=== PATIENT | female | born 1950 ===

== ENCOUNTER 2022-10-05 14:49 | Inpatient (IN) | payer OTHER ==
[~2022-10-05] VITALS: Ht 167.6 cm; Wt 99.3 kg
[2022-10-06] MEDS ORDERED: NORV PO (13:19)
[2022-10-06] MEDS ORDERED: HYZAAR 100-12.1 EACH PO (13:19)
[2022-10-06] MEDS ORDERED: LIPIT PO (13:20)
[2022-10-10] MEDS ORDERED: AMLODIPINE BESYL5 MG (15:07)
[2022-10-10] MEDS ORDERED: ATORVASTATIN CA20 MG (15:08)
[2022-10-10] MEDS ORDERED: LOSARTAN-HCTZ1 EAC1 (15:09)
[2022-10-12] MEDS ORDERED: BACTRIM DS TAB1 EACH PO (07:41)
[2022-10-12] MEDS ORDERED: INTEGRA PLUS C1 EACH PO (07:41)
[2022-10-12] MEDS ORDERED: OXYC1TAB9 PO (07:41)
[2022-10-12] MEDS ORDERED: XARELTO10 MG PO (07:41)
== END 2022-10-12 14:03 | disposition designated cancer center or children's hospital (05) | DRG 470 ==
LOC: O/R 10-10 05:10 → SURH 10-10 10:00
PROVIDERS: ADMIT Orthopaedic Surgery Sports Medicine; ATTEND Orthopaedic Surgery Sports Medicine
PROC: 0SRC0J9 Replacement of Right Knee Joint with Synthetic Substitute, Cemented, Open Approach (ICD-10-PCS; principal; 2022-10-10 11:15)
DX: M17.11 Unilateral primary osteoarthritis, right knee (principal)

== ENCOUNTER 2024-01-18 05:32 | Day surgery (SDC) | payer OTHER ==
[~2024-01-18 05:32] MED LIST: AMLODIPINE BESYL5 MG; ATORVASTATIN CA20 MG; BACTRIM DS TAB1 EACH PO; GLUMETZA500 MG PO; HYZAAR 100-12.1 EACH PO; INTEGRA PLUS C1 EACH PO; LIPIT PO; LIPITOR20 MG PO; LOSARTAN-HCTZ1 EAC1; NORV PO; OXYC1TAB9 PO; XARELTO10 MG PO
[2024-01-18] MEDS ORDERED: LIDOCAINE HCL 1%/EPINEPHRINE 20ML VIAL IJ ONE (09:00)
[2024-01-18] MEDS ORDERED: HEMOSTATIC MATRIX 1 KIT KIT TOP ONE (09:00)
[2024-01-18] MEDS ORDERED: POVIDONE-IODINE 118 ML BOTT TOP ONE (09:00)
[2024-01-18] MEDS ORDERED: DIBUCAINE 30 GM TUBE RECTAL ONE (09:00)
[2024-01-18] MEDS ORDERED: BUPIVACAINE HCL 30 ML VIAL IJ ONE (09:00)
[2024-01-18] MEDS ORDERED: METRONIDAZOLE/SODIUM CHLORIDE 500 MG/100 ML PIGGYBACK IV ONE (09:15)
[2024-01-18] MEDS ORDERED: CEFTRIAXONE SODIUM 2,000 MG VIAL IV ONE (09:15)
[2024-01-18] MEDS ORDERED: PERCOCET 5-3251 EACH PO (09:47)
[2024-01-18] MEDS ORDERED: RECTICARE30 GM TOP (09:47)
== END 2024-01-18 13:50 | disposition home or self-care (01) ==
LOC: CIR.AMB 05:32
PROVIDERS: ATTEND Surgery
DX: D01.3 Carcinoma in situ of anus and anal canal (principal); K62.1 Rectal polyp; K62.0 Anal polyp

== ENCOUNTER 2024-04-12 10:00 | Inpatient (IN) | payer OTHER ==
[~2024-04-12] VITALS: Ht 167.6 cm; Wt 98.0 kg
[~2024-04-12 10:00] MED LIST changes: +PERCOCET 5-3251 EACH PO; +RECTICARE30 GM TOP
[2024-04-12] MEDS ORDERED: CHILDREN'S ASPI81 MG PO (10:47)
[2024-04-12] MEDS ORDERED: MULTI-VITAMIN1 EACH PO (10:48)
[2024-04-12] MEDS ORDERED: FOLIC ACID1 MG PO (10:48)
[2024-04-12 10:49] VITALS: BP 151/83
[2024-04-12 12:54] LABS: RH POSITIVE
[2024-04-22] MEDS ORDERED: KETOROLAC TROMETHAMINE 60 MG VIAL IM ONE ×2 (06:54→07:10)
[2024-04-22] MEDS ORDERED: TRANEXAMIC ACID 100MG/1ML (1000MG) AMPUL IV ONE (06:55)
[2024-04-22] MEDS ORDERED: BUPIVACAINE HCL/MPF 0.5% 30ML VIAL ONE ×2 (06:55→07:10)
[2024-04-22] MEDS ORDERED: CEFAZOLIN SODIUM 1,000 MG VIAL ONE ×2 (06:55→07:11)
[2024-04-22] MEDS ORDERED: LIDOCAINE HCL 1%/EPINEPHRINE 20ML VIAL IJ ONE ×2 (06:55→07:10)
[2024-04-22] MEDS ORDERED: VANCOMYCIN HCL 1,000 MG VIAL ONE ×2 (07:56→21:21)
[2024-04-22] MEDS ORDERED: MORPHINE SULFATE 2 MG/ML CARTRIDGE IV ONE (09:45)
[2024-04-22] MEDS ORDERED: MORPHINE SULFATE 4 MG/ML CARTRIDGE IV PRN (09:45)
[2024-04-22] MEDS ORDERED: ONDANSETRON HCL 2 MG/ML VIAL IV PRN (09:45)
[2024-04-22] MEDS ORDERED: SODIUM CHLORIDE 0.45 % 1,000 ML IV SCH (09:45)
[2024-04-22] MEDS ORDERED: MORPHINE SULFATE 4 MG/ML VIAL IV ONE ×3 (10:15→12:10)
[2024-04-22 11:39] LABS: HEMATOCRIT 39.6 % (36.0-45.00); HEMOGLOBIN 14.2 g/dL (12.0-15.00); RED BLOOD COUNT 4.01 M/uL (4.00-6.00)
[2024-04-22 14:10] VITALS: BP 103/85; O2SAT 99
[2024-04-22 16:00] VITALS: BP 115/73; O2SAT 95
[2024-04-22] MEDS ORDERED: MetFORMIN HCL 500 MG TABLET PO SCH (17:00)
[2024-04-22] MEDS ORDERED: VANCOMYCIN HCL 1,000 MG VIAL IV SCH (21:00)
[2024-04-23 02:05] VITALS: BP 117/78; O2SAT 95
[2024-04-23 05:30] LABS: HEMATOCRIT 37.7 % (36.0-45.00); HEMOGLOBIN 12.8 g/dL (12.0-15.00); MEAN CELL VOLUME 100.9 fL (80.00-100.00); MEAN CORPUSCULAR HEMOGLOBIN 34.4 pg (27.00-32.0); MEAN CORPUSCULAR HGB CONC 34.1 g/dl (32.0-36.0); PLATELET COUNT 195 K/uL (150-450); RED BLOOD COUNT 3.73 M/uL (4.00-6.00); RED CELL DISTRIBUTION WIDTH 12.7 % (11.5-14.5)
[2024-04-23] MEDS ORDERED: VANCOMYCIN HCL 1,000 MG VIAL ONE (07:00)
[2024-04-23 08:00] VITALS: BP 165/65; O2SAT 98
[2024-04-23] MEDS ORDERED: ACETAMINOPHEN WITH CODEINE 1 UDTAB TABLET PO PRN (08:15)
[2024-04-23] MEDS ORDERED: IRON FUM,PS/FOLIC/BCOMP,C NO.9 1 CAP CAPSULE PO SCH (09:00)
[2024-04-23] MEDS ORDERED: SENNA/DOCUSATE SODIUM 1 TAB TABLET PO SCH (09:00)
[2024-04-23] MEDS ORDERED: LOSARTAN/HYDROCHLOROTHIAZIDE 1 UDTAB TABLET PO SCH (09:00)
[2024-04-23] MEDS ORDERED: SULFAMETHOXAZOLE/TRIMETHOPRIM DS 1 TAB PO SCH (09:00)
[2024-04-23] MEDS ORDERED: ATORVASTATIN CALCIUM 20 MG TABLET PO SCH (09:00)
[2024-04-23] MEDS ORDERED: RIVAROXABAN 10 MG TAB PO SCH (09:00)
[2024-04-23] MEDS ORDERED: BACITRACIN 28.35 GM OINT.TUBE TOP SCH (09:00)
[2024-04-23] MEDS ORDERED: AMLODIPINE BESYLATE 5 MG TABLET PO SCH (09:00)
[2024-04-23 16:25] VITALS: BP 158/66; O2SAT 95
[2024-04-24] MEDS ORDERED: INTEGRA PLUS C1 EACH PO (06:29)
[2024-04-24] MEDS ORDERED: XARELTO10 MG PO (06:29)
[2024-04-24] MEDS ORDERED: Septra Ds Tablet PO (06:29)
[2024-04-24] MEDS ORDERED: ACETAMINOPHEN-1 EAC2 PO (06:30)
[2024-04-24 07:24] LABS: HEMATOCRIT 35.4 % (36.0-45.00); HEMOGLOBIN 12.1 g/dL (12.0-15.00); MEAN CELL VOLUME 100.1 fL (80.00-100.00); MEAN CORPUSCULAR HEMOGLOBIN 34.3 pg (27.00-32.0); MEAN CORPUSCULAR HGB CONC 34.3 g/dl (32.0-36.0); PLATELET COUNT 142 K/uL (150-450); RED BLOOD COUNT 3.53 M/uL (4.00-6.00); RED CELL DISTRIBUTION WIDTH 12.6 % (11.5-14.5)
[2024-04-24 08:00] VITALS: BP 142/81; O2SAT 95
== END 2024-04-24 12:31 | DRG 470 ==
LOC: O/R 04-22 05:14 → SURH 04-22 05:14
PROVIDERS: ADMIT Orthopaedic Surgery Sports Medicine; ATTEND Orthopaedic Surgery Sports Medicine
PROC: 0SRD0JZ Replacement of Left Knee Joint with Synthetic Substitute, Open Approach (ICD-10-PCS; principal; 2024-04-22 07:00)
DX: M17.12 Unilateral primary osteoarthritis, left knee (principal); I10 Essential (primary) hypertension